=== PATIENT | male | born 1955 | race Caucasian/White ===

== ENCOUNTER 2019-06-24 09:25 | Emergency (ER) | payer MEDICARE, OTHER ==
[~2019-06-24] VITALS: Ht 190.5 cm; Wt 99.9 kg
[2019-06-24 09:35] VITALS: BP 124/90
--- NOTE | 2019-06-24 10:00 | NUR ---
pt presents to ED seeking chiu cath removal s/p procedure for BPH correction in [place] 5 days ago. pt has no complaints at this time. CRYSTAL Aguilar at bedside at this time.
--- NOTE | 2019-06-24 10:23 | NUR ---
LUNA BALLOON DEFLATED, LUNA CATH DC'D. PT TOLERATED WELL. PT GIVEN WATER WITH MD QUINONEZ, PT WISHES TO TRIAL VOIDING PRIOR TO GOING HOME.
--- NOTE | 2019-06-24 10:47 | NUR ---
pt requests discharge, stating he prefers to return to ED later if he cannot void. CRYSTAL Aguilar notified.
--- NOTE | 2019-06-24 10:56 | NUR ---
pt given dc instructions with return criteria and f/u instructions. pt denies pain at this time. pt a&o, resps even and unlabored, ambulatory to dc desk with steady gait. nadn at dc.
== END 2019-06-24 10:57 | disposition home or self-care (01) ==
LOC: ED 10:42
DX: Z49.01 Encounter for fitting and adjustment of extracorporeal dialysis catheter (principal); I10 Essential (primary) hypertension
CPT/HCPCS: 99281